=== PATIENT | female | born 1940 | race Asian ===

== ENCOUNTER 2020-08-09 01:15 | Emergency (ER) | payer MEDICARE, OTHER ==
[~2020-08-09] VITALS: Ht 157.5 cm; Wt 65.4 kg
--- NOTE | 2020-08-09 01:41 | NUR ---
Woke daughter up because was having severe dizziness when she closes her eyes, also nauseated. On monitor NSR, cont pulse ox. EKG at triage. Neg neuro deficits. a/ox4. hx htn
--- NOTE | 2020-08-09 01:53 | NUR ---
IV started bloods drawn and sent. Neuro intact, reports dizziness only when lays down and closes eyes, acc with n/v. Hx htn. Dr Shea at bedside.
[2020-08-09] MEDS ORDERED: ONDANSETRON 2MG/ML, 2ML IVPush ONE (02:00)
[2020-08-09] MEDS ORDERED: MECLIZINE CHEWABLE 25 MG TAB PO ONE (02:00)
[2020-08-09] MEDS ORDERED: MECLIZINE CHEWABLE 25 MG TAB ONE (02:04)
[2020-08-09] MEDS ORDERED: ONDANSETRON 2MG/ML, 2ML ONE (02:04)
--- NOTE | 2020-08-09 02:08 | NUR ---
Pt with active n/v now aprox 300ml clear/brownish. Medicated per order. Scanner in room not scanning properly for meds. Medicated per order. AIDET PROVIDED.
[2020-08-09 02:16] LABS: BASOPHILS % (AUTO) 0 % (0-1); EOSINOPHILS % (AUTO) 1 % (1-7); LYMPHOCYTES % (AUTO) 20 % (22-44); MD NO; MEAN CORPUSCULAR HEMOGLOBIN 30.2 pg (27.0-34.8); MEAN CORPUSCULAR HGB CONC 34.3 g/dL (32.4-35.8); MEAN PLATELET VOLUME 8.8 fL (7.4-10.4); MONOCYTES % (AUTO) 6 % (2-9); NEUTROPHILS % (AUTO) 73 % (42-75); PLATELET COUNT 227 x10^3/uL (130-400); RED BLOOD COUNT 4.58 x10^6/uL (3.82-5.3)
[2020-08-09 02:31] LABS: ALBUMIN 3.7 g/dL (3.4-5.0); ANION GAP 5 mmol/L (5-15); CALCIUM 8.9 mg/dL (8.5-10.1); CHLORIDE 98 mmol/L (98-107); CREATININE 0.95 mg/dL (0.55-1.02)
[2020-08-09 02:34] LABS: TROPONIN I 0.021 ng/mL (0.000-0.045)
--- NOTE | 2020-08-09 02:37 | NUR ---
Pt reports feeling slightly less nauseated but still dizzy when closes eyes. Up to bathroom, abulates steady gait. NSR no ectopy.
--- NOTE | 2020-08-09 02:52 | NUR ---
Pt to xray. VSS.
[2020-08-09] MEDS ORDERED: OMNIPAQUE 350 MG/ML, 100ML BOTTLE ONE (03:00)
--- NOTE | 2020-08-09 03:20 | NUR ---
Pt up to bathroom, ambulatory with daughter as assist. Pt reportts still feels dizzy when closes eyes, n/v resolved since zofran. Waiting for CTA report/re-eval by ERP.
--- NOTE | 2020-08-09 04:06 | NUR ---
Waiting for md re-eval and dispo. No more n/v. Still reports some dizziness when closes eyes. VSS. NSR no ectopy, no st elevation.
[2020-08-09 04:23] VITALS: BP 145/74
--- NOTE | 2020-08-09 04:23 | NUR ---
Up again to bathroom, waiting for dispo.
== END 2020-08-09 05:00 | disposition home or self-care (01) ==
LOC: ED 04:05
DX: R11.2 Nausea with vomiting, unspecified (principal); R42 Dizziness and giddiness; I10 Essential (primary) hypertension; R51.9 Headache, unspecified
CPT/HCPCS: 36415; 70450; 70496; 70498; 71045; 80048; 82040; 84484; 85025; 93005; 96374; 99285; J2405; Q9967